=== PATIENT | male | born 1990 | race Two or more races ===

== ENCOUNTER 2019-04-28 17:12 | Emergency (ER) | payer SELFPAY ==
[2019-04-28 17:24] VITALS: BP 134/91
--- NOTE | 2019-04-28 17:25 | UC ---
Dental HPI - HPI Summary HPI Summary: 28 yo male presents with dental pain. He tells me that he knows he has several bad teeth. Over the last few weeks he has noticed his bottom front tooth getting looser and looser. Last night it hurt so bad that he pulled it out himself. Today feels better, but he is concerned that it will get infected. He is confident that the whole tooth and root system was extracted. Denies fever. He states that he does not have a dentist, because he has no dental insurance - History of Current Complaint Chief Complaint: UCDentalProblem Stated Complaint: DENTAL PAIN Time Seen by Provider: 04/28/19 17:24 Hx Obtained From: Patient Onset/Duration: Gradual Onset Severity: Moderate Pain Intensity: 5 Pain Scale Used: 0-10 Numeric - Allergies/Home Medications Allergies/Adverse Reactions: Allergies Allergy/AdvReac Type Severity Reaction Status Date / Time No Known Allergies Allergy Verified 04/28/19 17:24 Home Medications: Home Medications Ibuprofen TAB* [Advil TAB*] 800 mg PO ONCE PRN 04/28/19 [History Confirmed 04/28] PMH/Surg Hx/FS Hx/Imm Hx - Additional Past Medical History Additional PMH: None Other History Of: Negative For: Anticoagulant Therapy - Surgical History Surgical History: None - Family History Known Family History: Positive: Respiratory Disease - asthma - Social History Occupation: Employed Full-time Lives: With Family Alcohol Use: Daily Alcohol Amount: 1 beer/day Substance Use Type: None Smoking Status (MU): Current Every Day Smoker Type: Cigarettes Household Exposure Type: Cigars Review of Systems All Other Systems Reviewed And Are Negative: No Constitutional: Positive: Negative Skin: Positive: Negative Eyes: Positive: Negative ENT: Positive: Dental Pain Respiratory: Positive: Negative Cardiovascular: Positive: Negative Neurological: Positive: Negative Psychological: Positive: Negative Physical Exam - Summary Physical Exam Summary: GENERAL: NAD. WDWN. No pain distress. SKIN: No rashes, sores, lesions, or open wounds. HEENT: Head: AT/NC Nose: Nasal mucosa pink and moist. NTTP maxillary and frontal sinus. Throat: Posterior oropharynx without exudates, erythema, or tonsillar enlargement. Uvula midline. NECK: Supple. Nontender. No lymphadenopathy. CHEST: No accessory muscle use. Breathing comfortably and in no distress. CV: RRR. Pulses intact. Cap refill <2seconds NEURO: Alert. PSYCH: Age appropriate behavior. Triage Information Reviewed: Yes Vital Signs: Initial Vital Signs Temp 98.6 F 04/28/19 17:20 Pulse 86 04/28/19 17:20 Resp 16 04/28/19 17:20 BP 134/91 04/28/19 17:20 Pulse Ox 98 04/28/19 17:20 Vital Signs Reviewed: Yes Dental: Positive: Percussion Tenderness @ - Former tooth #25, Gross Decay/ Caries @ - throughout. Negative: Dental Fracture @, Abscess @, Cellulitis @, Cervical Lymphadenopathy, Bleeding Dental Complaint Course/Dx - Course Course Of Treatment: Self extraction of tooth #25. Site looks well and without infection or abscess. Will start him with anbx and mouthwash prophylactically. - Differential Dx/Diagnosis Provider Diagnosis: History of tooth extraction Discharge ED - Sign-Out/Discharge Documenting (check all that apply): Patient Departure All imaging exams completed and their final reports reviewed: No Studies - Discharge Plan Condition: Stable Disposition: HOME Prescriptions: Amoxicillin PO (*) [Amoxicillin 500 MG CAP*] 500 mg PO Q12H #14 cap Chlorhexidine MW 0.12% 473ML* [Peridex Mouth Wash 0.12%] 15 ml MT DAILY #1 btl Referrals: No Primary Care Phys,NOPCP [Primary Care Provider] - Additional Instructions: If you develop a fever, shortness of breath, chest pain, new or worsening symptoms - please call your PCP or go to the ED immediately. - Billing Disposition and Condition Condition: STABLE Disposition: Home
== END 2019-04-28 17:39 | disposition home or self-care (01) ==
LOC: UCEAST 17:12
DX: K08.89 Other specified disorders of teeth and supporting structures (principal); F17.210 Nicotine dependence, cigarettes, uncomplicated; Z98.890 Other specified postprocedural states
CPT/HCPCS: 99202; G0463